=== PATIENT | female | born 1975 | race Two or more races ===

== ENCOUNTER 2017-11-21 13:24 | Outpatient (CLI) | payer OTHER ==
[~2017-11-21 13:24] MED LIST: AZOR 5/20 MG TA1 TAB PO; NABUMETONE500 MG PO; PERCOCET 5/3251 TAB PO
== END 2017-11-21 13:28 | disposition home or self-care (01) ==
LOC: SONOGRAMA 13:24
DX: N60.11 Diffuse cystic mastopathy of right breast (principal); N60.12 Diffuse cystic mastopathy of left breast; N63.22 Unspecified lump in the left breast, upper inner quadrant

== ENCOUNTER → 2018-10-21 10:56 | Outpatient (CLI) | payer OTHER | END | disposition home or self-care (01) | LOC: LAB 10:56 | DX: A43.8 Other forms of nocardiosis (principal); R05 Cough; J11.1 Influenza due to unidentified influenza virus with other respiratory manifestations; R50.9 Fever, unspecified ==

== ENCOUNTER 2019-03-25 12:01 | Emergency (ER) | payer OTHER ==
[~2019-03-25] VITALS: Ht 157.5 cm; Wt 87.5 kg
== END 2019-03-25 16:53 | disposition home or self-care (01) ==
LOC: ER 12:01
DX: R42 Dizziness and giddiness (principal)

== ENCOUNTER 2019-06-18 07:35 | Day surgery (SDC) | payer OTHER | END 2019-06-18 17:00 | disposition home or self-care (01) | LOC: CIR.AMB 07:35 | PROVIDERS: Plastic Surgery | PROC: 0HBV0ZZ Excision of Bilateral Breast, Open Approach (ICD-10-PCS; principal; 2019-06-18 07:00) | DX: N62 Hypertrophy of breast (principal) ==